=== PATIENT | female | born 1955 | race African-American/Black ===

== ENCOUNTER 2016-09-03 13:35 | Emergency (ER) | payer MEDICARE, MEDICAID ==
[~2016-09-03] VITALS: Ht 165.1 cm; Wt 93.0 kg
[2016-09-03] MEDS ORDERED: SODIUM CHLORIDE 0.9% 1,000 ML IV ONE (17:04)
[2016-09-03 18:50] LABS: EOSINOPHILS % 2.5 % (0.0-5.0); HEMATOCRIT. 29.6 % (36.0-48.0); HEMOGLOBIN. 10.1 g/dL (12.0-16.0); LYMPHOCYTES % 26.6 % (20.0-50.0); MEAN CORPUSCULAR HEMOGLOBIN 32.1 pg (28.0-32.0); MEAN CORPUSCULAR HGB CONC 33.9 g/dL (31.0-37.0); MEAN CORPUSCULAR VOLUME 94.6 fL (81.0-99.0); MEAN PLATELET VOLUME 8.2 fl (7.4-10.4); MONOCYTES % 4.3 % (2.0-8.0); NEUTROPHILS % 65.6 % (40.0-76.0); PLATELET 269 x1000/uL (130-400); RED BLOOD CELL COUNT 3.13 mill/uL (4.2-5.4); RED CELL DISTRIBUTION WIDTH 13.8 % (11.6-14.6); WHITE BLOOD COUNT 9.3 x1000/uL (4.5-11.0)
[2016-09-03 18:54] LABS: PROTHROMBIN TIME 10.5 sec
[2016-09-03 19:03] LABS: ALANINE AMINOTRANSFERASE 19 IU/L (13-61); ALBUMIN 2.9 g/dL (3.4-5.0); ANION GAP 16; CALCIUM 8.9 mg/dL (8.5-10.1); CARBON DIOXIDE 24 mEq/L (21-32); CHLORIDE 106 mEq/L (98-107); INDEX HEMOLYSI 1 (1-3); INDEX ICTERIC 1 (1-4); INDEX LIPEMIC 1 (1-3); UREA NITROGEN BLOOD 13 mg/dL (7-21); eGFR > 60 mL/min (>60)
[2016-09-03 19:17] LABS: HCG SCREEN NEGATIVE
[2016-09-03 20:43] VITALS: BP 127/74
== END 2016-09-03 20:44 | disposition home or self-care (01) ==
LOC: ER 19:19
DX: N93.9 Abnormal uterine and vaginal bleeding, unspecified (principal); R42 Dizziness and giddiness; R53.1 Weakness; E11.9 Type 2 diabetes mellitus without complications; I10 Essential (primary) hypertension
CPT/HCPCS: 36415; 76830; 76856; 80053; 84703; 85025; 85610; 86850; 86900; 86901; 99285; J7030

== ENCOUNTER 2017-01-01 11:44 | Emergency (ER) | payer MEDICARE, MEDICAID ==
[~2017-01-01] VITALS: Ht 175.3 cm; Wt 96.0 kg
[2017-01-01] MEDS ORDERED: MORPHINE SULFATE 4 MG/ML CPJ (NOT FOR IM USE) IV STA (14:18)
[2017-01-01] MEDS ORDERED: SODIUM CHLORIDE 0.9% 1,000 ML IV ONE (14:18)
[2017-01-01] MEDS ORDERED: ONDANSETRON HCL 4MG/2ML VIAL IV STA (14:18)
[2017-01-01 15:04] LABS: CHLORIDE 105 mEq/L (98-107)
[2017-01-01 15:05] LABS: PROTHROMBIN TIME 10.5 sec (9.4-11.6)
[2017-01-01 15:06] LABS: BASOPHILS % 0.9 % (0.0-2.0); HEMATOCRIT. 31.6 % (36.0-48.0); HEMOGLOBIN. 10.3 g/dL (12.0-16.0); LYMPHOCYTES % 14.7 % (20.0-50.0); MEAN CORPUSCULAR HEMOGLOBIN 30.7 pg (28.0-32.0); MEAN CORPUSCULAR VOLUME 94.2 fL (81.0-99.0); MEAN PLATELET VOLUME 8.4 fl (7.4-10.4); NEUTROPHILS % 76.4 % (40.0-76.0); PLATELET 305 x1000/uL (130-400); RED BLOOD CELL COUNT 3.36 mill/uL (4.2-5.4); RED CELL DISTRIBUTION WIDTH 14.3 % (11.6-14.6)
[2017-01-01 15:13] LABS: CARBON DIOXIDE 22 mEq/L (21-32)
[2017-01-01 16:52] LABS: CLARITY URINE TURBID (CLEAR); COLOR URINE ORANGE (YELLOW); GLUCOSE URINE NEGATIVE (NEGATIVE); KETONES URINE NEGATIVE (NEGATIVE); LEUKOCYTE ESTERASE URINE 2+ (NEGATIVE); NITRITE URINE NEGATIVE (NEGATIVE); OCCULT BLOOD URINE 3+ (NEGATIVE); PROTEIN URINE 3+ (NEGATIVE); UROBILINOGEN URINE 0.2 E.U./dL (0.2-1.0)
[2017-01-01 17:54] VITALS: BP 120/75
== END 2017-01-01 17:57 | disposition home or self-care (01) ==
LOC: ER 14:44
DX: K80.20 Calculus of gallbladder without cholecystitis without obstruction (principal); N39.0 Urinary tract infection, site not specified; E11.9 Type 2 diabetes mellitus without complications; J98.11 Atelectasis; I10 Essential (primary) hypertension; F17.210 Nicotine dependence, cigarettes, uncomplicated
CPT/HCPCS: 36415; 71010; 74176; 80053; 81001; 83690; 85025; 85610; 96361; 96374; 96375; 99285; J2270; J2405; J7030

== ENCOUNTER 2019-05-20 11:19 | Inpatient (IN) | payer MEDICARE, MEDICAID ==
[~2019-05-20] VITALS: Ht 172.7 cm; Wt 115.2 kg
[2019-05-20] MEDS ORDERED: SODIUM CHLORIDE 0.9% 1,000 ML IV ONE (12:09)
[2019-05-20] MEDS ORDERED: MORPHINE SULFATE 4 MG/ML CPJ (NOT FOR IM USE) IV STA (12:09)
[2019-05-20] MEDS ORDERED: ONDANSETRON HCL 4MG/2ML INJ IV STA (12:09)
[2019-05-20 12:36] LABS: BASOPHILS % 0.7 % (0.0-2.0); EOSINOPHILS % 1.1 % (0.0-5.0); HEMATOCRIT. 31.8 % (36.0-48.0); HEMOGLOBIN. 10.3 g/dL (12.0-16.0); LYMPHOCYTES % 18.4 % (20.0-50.0); MEAN CORPUSCULAR HEMOGLOBIN 28.9 pg (28.0-32.0); MEAN CORPUSCULAR VOLUME 89.3 fL (81.0-99.0); MEAN PLATELET VOLUME 9.6 fl (7.4-10.4); MONOCYTES % 5.4 % (2.0-8.0); NEUTROPHILS % 74.4 % (40.0-76.0); PLATELET 312 x1000/uL (130-400); RED BLOOD CELL COUNT 3.56 mill/uL (4.2-5.4); RED CELL DISTRIBUTION WIDTH 13.4 % (11.6-14.6)
[2019-05-20 12:43] LABS: CHLORIDE 99 mEq/L (98-107)
[2019-05-20] MEDS ORDERED: INSULIN REGULAR (HUMULIN R) 300UNITS/3ML SUBCUT ONE (14:30)
[2019-05-20 16:48] LABS: CLARITY URINE TURBID (CLEAR); COLOR URINE RED (YELLOW); KETONES URINE 2+ (NEGATIVE); LEUKOCYTE ESTERASE URINE 2+ (NEGATIVE); NITRITE URINE POSITIVE (NEGATIVE); OCCULT BLOOD URINE 3+ (NEGATIVE); PROTEIN URINE 4+ (NEGATIVE); SPECIFIC GRAVITY URINE 1.029 (1.005-1.030)
[2019-05-20] MEDS ORDERED: CEFTRIAXONE 2 G PREMIX 50 ML IV ONE (18:00)
[2019-05-20] MEDS ORDERED: IPRATROPIUM/ALBUTEROL 0.5-3(2.5)MG/3ML NEB NEB PRN (18:30)
[2019-05-20] MEDS ORDERED: DIPHENHYDRAMINE 50MG/ML VIAL IV PRN (18:30)
[2019-05-20] MEDS ORDERED: CLONIDINE 0.1MG TABLET PO PRN (18:30)
[2019-05-20] MEDS ORDERED: MAGNESIUM/ALUMINUM HYDROXIDE/SIMETHICONE 30ML UDC PO PRN (18:30)
[2019-05-20] MEDS ORDERED: ONDANSETRON HCL 4MG/2ML INJ IV PRN (18:30)
[2019-05-20] MEDS ORDERED: ACETAMINOPHEN 325MG TABLET PO PRN (18:30)
[2019-05-20] MEDS ORDERED: NA PHOS,M-B/NA PHOS,DI-BA ENEMA 118ML PR PRN (18:30)
[2019-05-20] MEDS ORDERED: GUAIFENESIN 200MG/10ML SUGAR FREE UDC PO PRN (18:30)
[2019-05-20] MEDS ORDERED: LORAZEPAM 2MG/ML CPJ IV PRN (18:30)
[2019-05-20] MEDS ORDERED: DOCUSATE SODIUM 100MG CAPSULE PO PRN (18:30)
[2019-05-20] MEDS ORDERED: PIPERACILLIN/TAZ 3.375G PREMIX 50 ML IV NR (18:45)
[2019-05-20] MEDS: SODIUM CHLORIDE 0.45% 1,000 ML IV SCH ×2 (19:11→21:50)
[2019-05-20] MEDS: MORPHINE SULFATE 2 MG/ML CPJ (NOT FOR IM USE) IV PRN (20:28)
[2019-05-20 20:45] VITALS: BP 120/69
[2019-05-20] MEDS ORDERED: DEXTROSE 50% WATER 50ML SYRINGE IV PRN (21:45)
[2019-05-20] MEDS: INSULIN LISPRO 100 UNITS/ML SUBCUT SCH (22:01)
[2019-05-20 22:43] VITALS: BP 120/69
[2019-05-21] VITALS: BP 105/53
[2019-05-21] MEDS: PIPERACILLIN/TAZOBACTAM 3.375 G in DEXT 5% WATER 100 ML IV SCH ×3 (03:20→21:17)
[2019-05-21 04:00] VITALS: BP 120/56
[2019-05-21] MEDS ORDERED: PIPERACILLIN/TAZ 3.375G PREMIX 50 ML IV SCH (06:00)
[2019-05-21] MEDS: BLOOD SUGAR DIAGNOSTIC STRIP TEST SCH ×4 (06:35→20:30)
[2019-05-21] MEDS: INSULIN LISPRO 100 UNITS/ML SUBCUT SCH ×4 (06:52→20:44)
[2019-05-21 06:54] LABS: BASOPHILS % 0.7 % (0.0-2.0); EOSINOPHILS % 3.2 % (0.0-5.0); HEMATOCRIT. 27.6 % (36.0-48.0); HEMOGLOBIN. 8.8 g/dL (12.0-16.0); LYMPHOCYTES % 13.7 % (20.0-50.0); MEAN CORPUSCULAR HEMOGLOBIN 28.4 pg (28.0-32.0); MEAN CORPUSCULAR VOLUME 89.2 fL (81.0-99.0); MEAN PLATELET VOLUME 9.2 fl (7.4-10.4); MONOCYTES % 7.6 % (2.0-8.0); NEUTROPHILS % 74.8 % (40.0-76.0); PLATELET 262 x1000/uL (130-400); RED BLOOD CELL COUNT 3.09 mill/uL (4.2-5.4)
[2019-05-21 07:38] LABS: CHLORIDE 103 mEq/L (98-107)
[2019-05-21 08:00] VITALS: BP 114/50
[2019-05-21] MEDS: ASPIRIN 81MG EC TABLET PO SCH (08:47)
[2019-05-21] MEDS: HYDROCODONE/ACETAMINOPHEN 10/325MG TABLET PO PRN (08:53)
[2019-05-21] MEDS ORDERED: INSULIN GLARGINE UD 100 UNITS/ML SYR SUBCUT SCH (10:00)
[2019-05-21 12:00] VITALS: BP 103/46
[2019-05-21] MEDS ORDERED: MORPHINE SULFATE 2 MG/ML CPJ (NOT FOR IM USE) IV PRN (12:00)
[2019-05-21] MEDS: MORPHINE SULFATE 2 MG/ML CPJ (NOT FOR IM USE) IV PRN ×3 (12:32→22:27)
[2019-05-21 16:00] VITALS: BP 109/53
[2019-05-21] MEDS ORDERED: INSULIN LISPRO 100 UNITS/ML SUBCUT NR (18:13)
[2019-05-21] MEDS ORDERED: INSULIN REGULAR (HUMULIN R) 300UNITS/3ML SUBCUT ONE (18:15)
[2019-05-21 20:00] VITALS: BP 117/59
[2019-05-22] VITALS: BP 110/54
[2019-05-22] MEDS: MORPHINE SULFATE 2 MG/ML CPJ (NOT FOR IM USE) IV PRN ×5 (03:52→21:46)
[2019-05-22 04:00] VITALS: BP 101/54
[2019-05-22] MEDS: PIPERACILLIN/TAZOBACTAM 3.375 G in DEXT 5% WATER 100 ML IV SCH ×3 (05:27→21:49)
[2019-05-22] MEDS: BLOOD SUGAR DIAGNOSTIC STRIP TEST SCH ×4 (06:25→20:38)
[2019-05-22] MEDS: INSULIN LISPRO 100 UNITS/ML SUBCUT SCH ×4 (07:38→21:56)
[2019-05-22 08:00] VITALS: BP 107/53
[2019-05-22] MEDS ORDERED: INSULIN LISPRO 100 UNITS/ML SUBCUT ONE (09:00)
[2019-05-22] MEDS: ASPIRIN 81MG EC TABLET PO SCH (10:17)
[2019-05-22] MEDS: INSULIN GLARGINE UD 100 UNITS/ML SYR SUBCUT SCH (10:20)
[2019-05-22] MEDS: SODIUM CHLORIDE 0.45% 1,000 ML IV SCH ×2 (10:52→22:00)
[2019-05-22 12:00] VITALS: BP 102/75
[2019-05-22 16:00] VITALS: BP 118/59
[2019-05-22 20:00] VITALS: BP 108/50
[2019-05-23] VITALS: BP 103/51
[2019-05-23 04:00] VITALS: BP 109/53
[2019-05-23] MEDS: PIPERACILLIN/TAZOBACTAM 3.375 G in DEXT 5% WATER 100 ML IV SCH ×3 (05:40→22:03)
[2019-05-23] MEDS: MORPHINE SULFATE 2 MG/ML CPJ (NOT FOR IM USE) IV PRN ×4 (06:00→22:03)
[2019-05-23] MEDS: BLOOD SUGAR DIAGNOSTIC STRIP TEST SCH ×4 (06:41→21:00)
[2019-05-23] MEDS: ASPIRIN 81MG EC TABLET PO SCH (08:15)
[2019-05-23] MEDS: INSULIN LISPRO 100 UNITS/ML SUBCUT SCH ×4 (08:21→22:08)
[2019-05-23] MEDS: INSULIN GLARGINE UD 100 UNITS/ML SYR SUBCUT SCH (10:49)
[2019-05-23 20:00] VITALS: BP 127/79
[2019-05-23] MEDS: SODIUM CHLORIDE 0.45% 1,000 ML IV SCH ×2 (22:14→22:16)
[2019-05-24] VITALS: BP 106/56
[2019-05-24 04:00] VITALS: BP 119/77
[2019-05-24] MEDS: PIPERACILLIN/TAZOBACTAM 3.375 G in DEXT 5% WATER 100 ML IV SCH (06:16)
[2019-05-24] MEDS: BLOOD SUGAR DIAGNOSTIC STRIP TEST SCH ×2 (06:42→11:39)
[2019-05-24 08:00] VITALS: BP 116/81
[2019-05-24] MEDS: ASPIRIN 81MG EC TABLET PO SCH (08:14)
[2019-05-24] MEDS: INSULIN LISPRO 100 UNITS/ML SUBCUT SCH ×2 (09:18→12:09)
[2019-05-24] MEDS: INSULIN GLARGINE UD 100 UNITS/ML SYR SUBCUT SCH (09:18)
[2019-05-24] MEDS: MORPHINE SULFATE 2 MG/ML CPJ (NOT FOR IM USE) IV PRN (09:19)
[2019-05-24 12:21] VITALS: BP 112/50
[2019-05-24 12:33] VITALS: BP 112/50
[2019-05-24] MEDS: HYDROCODONE/ACETAMINOPHEN 10/325MG TABLET PO PRN (12:33)
== END 2019-05-24 13:10 | DRG 690 ==
LOC: ER 11:19 → 6EST 18:19 → EDBEDREQTM 18:30 → EDBEDREQ 18:30 → ENRESERV 19:56
PROVIDERS: ADMIT Internal Medicine; ATTEND Internal Medicine
DX: N12 Tubulo-interstitial nephritis, not specified as acute or chronic (principal); E87.1 Hypo-osmolality and hyponatremia; E46 Unspecified protein-calorie malnutrition; R65.10 Systemic inflammatory response syndrome (SIRS) of non-infectious origin without acute organ dysfunction; N39.0 Urinary tract infection, site not specified; N17.9 Acute kidney failure, unspecified; E11.9 Type 2 diabetes mellitus without complications; G89.29 Other chronic pain; L89.322 Pressure ulcer of left buttock, stage 2; F17.210 Nicotine dependence, cigarettes, uncomplicated; D64.9 Anemia, unspecified; R26.9 Unspecified abnormalities of gait and mobility; E86.0 Dehydration; I10 Essential (primary) hypertension; L89.42 Pressure ulcer of contiguous site of back, buttock and hip, stage 2; Z89.512 Acquired absence of left leg below knee; Z68.38 Body mass index [BMI] 38.0-38.9, adult
CPT/HCPCS: 36415; 72148; 80053; 81003; 82962; 84134; 85025; 87077; 87186; 96365; 97162; 99285; J0696; J1815; J2270; J2405; J2543; J7030; J7060

== ENCOUNTER 2019-08-28 23:28 | Inpatient (IN) | payer MEDICARE, MEDICAID ==
[~2019-08-28] VITALS: Ht 165.1 cm; Wt 100.4 kg
[2019-08-29 00:31] LABS: BASOPHILS % 1.5 % (0.0-2.0); EOSINOPHILS % 2.1 % (0.0-5.0); HEMATOCRIT. 23.2 % (36.0-48.0); LYMPHOCYTES % 26.4 % (20.0-50.0); MEAN CORPUSCULAR HEMOGLOBIN 22.5 pg (28.0-32.0); MEAN CORPUSCULAR VOLUME 76.3 fL (81.0-99.0); MEAN PLATELET VOLUME 8.4 fl (7.4-10.4); MONOCYTES % 5.7 % (2.0-8.0); NEUTROPHILS % 64.3 % (40.0-76.0); PLATELET 455 x1000/uL (130-400); RED BLOOD CELL COUNT 3.04 mill/uL (4.2-5.4); RED CELL DISTRIBUTION WIDTH 17.2 % (11.6-14.6)
[2019-08-29 00:33] LABS: HEMOGLOBIN. 6.8 g/dL (12.0-16.0)
[2019-08-29 00:37] LABS: CHLORIDE 111 mEq/L (98-107)
[2019-08-29 03:36] LABS: CLARITY URINE CLOUDY (CLEAR); COLOR URINE YELLOW (YELLOW); KETONES URINE TRACE (NEGATIVE); LEUKOCYTE ESTERASE URINE 1+ (NEGATIVE); NITRITE URINE POSITIVE (NEGATIVE); OCCULT BLOOD URINE NEGATIVE (NEGATIVE); PROTEIN URINE 2+ (NEGATIVE); SPECIFIC GRAVITY URINE 1.021 (1.005-1.030)
[2019-08-29] MEDS ORDERED: CEFTRIAXONE 1 G PREMIX 50 ML IV ONE (05:45)
[2019-08-29] MEDS ORDERED: SODIUM CHLORIDE 0.9% 1,000 ML IV ONE (05:45)
[2019-08-29] MEDS ORDERED: TRAMADOL 50MG TABLET PO PRN (07:45)
[2019-08-29] MEDS ORDERED: ONDANSETRON HCL 4MG/2ML INJ IV PRN (07:45)
[2019-08-29] MEDS ORDERED: ACETAMINOPHEN 325MG TABLET PO PRN ×2 (07:45)
[2019-08-29] MEDS ORDERED: DOCUSATE SODIUM 100MG CAPSULE PO PRN (07:45)
[2019-08-29] MEDS ORDERED: GUAIFENESIN 200MG/10ML SUGAR FREE UDC PO PRN (07:45)
[2019-08-29] MEDS ORDERED: IPRATROPIUM/ALBUTEROL 0.5-3(2.5)MG/3ML NEB ORI PRN (07:45)
[2019-08-29] MEDS ORDERED: CLONIDINE 0.1MG TABLET PO PRN (07:45)
[2019-08-29] MEDS ORDERED: ZOLPIDEM TARTRATE 5MG TABLET PO PRN (07:45)
[2019-08-29] MEDS ORDERED: DEXTROSE 50% WATER 50ML SYRINGE IV PRN (07:45)
[2019-08-29] MEDS ORDERED: PANTOPRAZOLE SODIUM 40 MG/VIAL IV SCH (08:00)
[2019-08-29 08:39] LABS: T4 FREE 1.04 ng/dL (0.76-1.46)
[2019-08-29 08:51] LABS: FOLIC ACID (FOLATE) SERUM 11.3 ng/mL (>5.38)
[2019-08-29] MEDS: INSULIN LISPRO 100 UNITS/ML SUBCUT SCH ×4 (08:56→20:18)
[2019-08-29] MEDS: BLOOD SUGAR DIAGNOSTIC STRIP TEST SCH ×4 (09:08→20:06)
[2019-08-29 11:20] VITALS: BP 127/75
[2019-08-29 12:00] VITALS: BP 136/73
[2019-08-29] MEDS: FERROUS SULFATE 325MG TABLET PO SCH ×2 (14:41→18:20)
[2019-08-29] MEDS: SUCRALFATE 1 G/10 ML UDC PO SCH ×3 (14:41→20:17)
[2019-08-29 16:13] LABS: HEMATOCRIT 25.6 % (36.0-48.0); HEMOGLOBIN 7.9 g/dL (12.0-16.0)
[2019-08-29 16:28] LABS: PROTHROMBIN TIME 10.8 sec (9.6-11.0)
[2019-08-29 17:10] VITALS: BP 152/87
[2019-08-29] MEDS ORDERED: LEVOFLOXACIN 500MG PREMIX 100 ML IV NR (18:00)
[2019-08-29 20:00] VITALS: BP 135/66
[2019-08-29 22:55] VITALS: BP 134/69
[2019-08-29 23:15] VITALS: BP 142/77
[2019-08-30] VITALS (8 sets, daily range): BP systolic 132–150; BP diastolic 63–83
[2019-08-30 06:11] LABS: BASOPHILS % 0.4 % (0.0-2.0); EOSINOPHILS % 2.6 % (0.0-5.0); HEMATOCRIT. 27.8 % (36.0-48.0); HEMOGLOBIN. 8.8 g/dL (12.0-16.0); LYMPHOCYTES % 21.9 % (20.0-50.0); MEAN CORPUSCULAR HEMOGLOBIN 24.9 pg (28.0-32.0); MEAN CORPUSCULAR VOLUME 78.6 fL (81.0-99.0); MEAN PLATELET VOLUME 8.3 fl (7.4-10.4); MONOCYTES % 5.4 % (2.0-8.0); NEUTROPHILS % 69.7 % (40.0-76.0); PLATELET 303 x1000/uL (130-400); RED BLOOD CELL COUNT 3.53 mill/uL (4.2-5.4); RED CELL DISTRIBUTION WIDTH 17.9 % (11.6-14.6)
[2019-08-30 06:24] LABS: CHLORIDE 111 mEq/L (98-107)
[2019-08-30] MEDS: SUCRALFATE 1 G/10 ML UDC PO SCH ×4 (06:35→21:05)
[2019-08-30] MEDS: BLOOD SUGAR DIAGNOSTIC STRIP TEST SCH ×4 (06:37→21:00)
[2019-08-30 06:39] LABS: PHOSPHORUS 2.1 mg/dL (2.5-4.9)
[2019-08-30] MEDS: PANTOPRAZOLE SODIUM 40 MG/VIAL IV SCH (08:40)
[2019-08-30] MEDS: FERROUS SULFATE 325MG TABLET PO SCH ×3 (08:40→16:42)
[2019-08-30] MEDS: INSULIN LISPRO 100 UNITS/ML SUBCUT SCH ×4 (08:41→21:00)
[2019-08-30] MEDS: CEFTRIAXONE 1 G PREMIX 50 ML IV SCH (08:43)
[2019-08-30] MEDS ORDERED: LEVOFLOXACIN 250MG PREMIX 50 ML IV SCH (15:00)
[2019-08-31 00:08] VITALS: BP 123/52
[2019-08-31 04:00] VITALS: BP 118/71
[2019-08-31] MEDS: SUCRALFATE 1 G/10 ML UDC PO SCH ×4 (05:46→20:29)
[2019-08-31] MEDS: BLOOD SUGAR DIAGNOSTIC STRIP TEST SCH ×4 (05:49→20:07)
[2019-08-31 08:00] VITALS: BP 159/72
[2019-08-31] MEDS: CEFTRIAXONE 1 G PREMIX 50 ML IV SCH (09:11)
[2019-08-31] MEDS: FERROUS SULFATE 325MG TABLET PO SCH ×3 (09:11→18:37)
[2019-08-31] MEDS: PANTOPRAZOLE SODIUM 40 MG/VIAL IV SCH (09:11)
[2019-08-31] MEDS: INSULIN LISPRO 100 UNITS/ML SUBCUT SCH ×4 (09:12→20:31)
[2019-08-31 12:00] VITALS: BP 127/72
[2019-08-31] MEDS: LEVOFLOXACIN 250MG TABLET PO SCH (15:26)
[2019-08-31 16:00] VITALS: BP 147/81
[2019-08-31 20:55] VITALS: BP 149/75
[2019-09-01 00:22] VITALS: BP 142/72
[2019-09-01 05:20] VITALS: BP 140/67
[2019-09-01] MEDS: BLOOD SUGAR DIAGNOSTIC STRIP TEST SCH ×4 (06:48→21:04)
[2019-09-01] MEDS: SUCRALFATE 1 G/10 ML UDC PO SCH ×4 (06:48→21:05)
[2019-09-01 09:11] LABS: FOLATE HEMATOCRIT 30.6 % (34.0-46.6)
[2019-09-01] MEDS: CEFTRIAXONE 1 G PREMIX 50 ML IV SCH (09:13)
[2019-09-01] MEDS: FERROUS SULFATE 325MG TABLET PO SCH ×2 (09:13→15:26)
[2019-09-01] MEDS: PANTOPRAZOLE SODIUM 40 MG/VIAL IV SCH (09:13)
[2019-09-01] MEDS: INSULIN LISPRO 100 UNITS/ML SUBCUT SCH ×4 (09:17→21:07)
[2019-09-01 13:06] LABS: FOLATE RBC 1235 ng/mL (>498)
[2019-09-01] MEDS: LEVOFLOXACIN 250MG TABLET PO SCH (15:25)
[2019-09-01 21:27] VITALS: BP 106/49
[2019-09-02] VITALS (7 sets, daily range): BP systolic 110–149; BP diastolic 56–89
[2019-09-02] MEDS: BLOOD SUGAR DIAGNOSTIC STRIP TEST SCH ×4 (06:32→20:10)
[2019-09-02] MEDS: SUCRALFATE 1 G/10 ML UDC PO SCH ×4 (06:39→20:16)
[2019-09-02] MEDS: CEFTRIAXONE 1 G PREMIX 50 ML IV SCH (09:29)
[2019-09-02] MEDS: PANTOPRAZOLE SODIUM 40 MG/VIAL IV SCH (09:29)
[2019-09-02] MEDS: FERROUS SULFATE 325MG TABLET PO SCH ×4 (09:29→18:09)
[2019-09-02] MEDS: INSULIN LISPRO 100 UNITS/ML SUBCUT SCH ×4 (09:31→20:18)
[2019-09-02] MEDS: LEVOFLOXACIN 250MG TABLET PO SCH (15:25)
[2019-09-03 00:27] VITALS: BP 139/77
[2019-09-03 04:30] VITALS: BP 132/70
[2019-09-03] MEDS: BLOOD SUGAR DIAGNOSTIC STRIP TEST SCH ×4 (06:20→21:00)
[2019-09-03] MEDS: SUCRALFATE 1 G/10 ML UDC PO SCH ×4 (06:22→22:46)
[2019-09-03] MEDS ORDERED: CEFTRIAXONE 1,000 MG in DEXTROSE 5% WATER 50 ML IV SCH (09:00)
[2019-09-03] MEDS: PANTOPRAZOLE SODIUM 40 MG/VIAL IV SCH (09:23)
[2019-09-03] MEDS: FERROUS SULFATE 325MG TABLET PO SCH ×3 (09:24→18:18)
[2019-09-03] MEDS: INSULIN LISPRO 100 UNITS/ML SUBCUT SCH ×4 (09:24→22:48)
[2019-09-03 12:00] VITALS: BP 152/82
[2019-09-03 16:00] VITALS: BP 137/69
[2019-09-03 20:00] VITALS: BP 142/67
[2019-09-04] VITALS: BP 152/69
[2019-09-04 04:00] VITALS: BP 149/69
[2019-09-04] MEDS: SUCRALFATE 1 G/10 ML UDC PO SCH ×4 (06:08→21:07)
[2019-09-04] MEDS: BLOOD SUGAR DIAGNOSTIC STRIP TEST SCH ×4 (06:08→21:06)
[2019-09-04 08:00] VITALS: BP 150/78
[2019-09-04] MEDS: FERROUS SULFATE 325MG TABLET PO SCH ×3 (08:59→17:47)
[2019-09-04] MEDS: PANTOPRAZOLE SODIUM 40 MG/VIAL IV SCH (08:59)
[2019-09-04] MEDS: INSULIN LISPRO 100 UNITS/ML SUBCUT SCH ×4 (09:00→21:25)
[2019-09-04 12:00] VITALS: BP 131/65
[2019-09-04 16:00] VITALS: BP 153/81
[2019-09-04 20:00] VITALS: BP 153/72
[2019-09-05] VITALS: BP 155/80
[2019-09-05 04:00] VITALS: BP 141/88
[2019-09-05] MEDS: SUCRALFATE 1 G/10 ML UDC PO SCH ×4 (06:00→20:30)
[2019-09-05] MEDS: BLOOD SUGAR DIAGNOSTIC STRIP TEST SCH ×4 (06:00→20:19)
[2019-09-05 08:00] VITALS: BP 132/76
[2019-09-05] MEDS: FERROUS SULFATE 325MG TABLET PO SCH ×3 (08:16→17:29)
[2019-09-05] MEDS: PANTOPRAZOLE SODIUM 40 MG/VIAL IV SCH (08:16)
[2019-09-05] MEDS: INSULIN LISPRO 100 UNITS/ML SUBCUT SCH ×4 (08:23→20:32)
[2019-09-05 12:00] VITALS: BP 134/61
[2019-09-05 16:00] VITALS: BP 162/84
[2019-09-05 20:00] VITALS: BP 116/64
[2019-09-06] VITALS: BP 137/69
[2019-09-06 04:00] VITALS: BP 166/80
[2019-09-06] MEDS: SUCRALFATE 1 G/10 ML UDC PO SCH ×4 (06:13→21:22)
[2019-09-06] MEDS: BLOOD SUGAR DIAGNOSTIC STRIP TEST SCH ×4 (06:13→21:14)
[2019-09-06] MEDS: INSULIN LISPRO 100 UNITS/ML SUBCUT SCH ×4 (06:38→21:28)
[2019-09-06 08:00] VITALS: BP 156/80
[2019-09-06] MEDS: PANTOPRAZOLE SODIUM 40 MG/VIAL IV SCH (08:28)
[2019-09-06] MEDS: FERROUS SULFATE 325MG TABLET PO SCH ×3 (08:28→17:43)
[2019-09-06 12:00] VITALS: BP 156/84
[2019-09-06 16:00] VITALS: BP 132/72
[2019-09-06 20:00] VITALS: BP 160/87
[2019-09-06] MEDS: ASCORBIC ACID 500 MG TABLET PO SCH (21:22)
[2019-09-07] VITALS: BP 127/61
[2019-09-07 04:00] VITALS: BP 110/51
[2019-09-07] MEDS: SUCRALFATE 1 G/10 ML UDC PO SCH ×4 (06:42→21:13)
[2019-09-07] MEDS: BLOOD SUGAR DIAGNOSTIC STRIP TEST SCH ×4 (06:42→21:11)
[2019-09-07 06:44] LABS: BASOPHILS % 0.4 % (0.0-2.0); EOSINOPHILS % 1.8 % (0.0-5.0); HEMATOCRIT. 29.1 % (36.0-48.0); HEMOGLOBIN. 9.2 g/dL (12.0-16.0); LYMPHOCYTES % 25.4 % (20.0-50.0); MEAN CORPUSCULAR HEMOGLOBIN 25.3 pg (28.0-32.0); MEAN CORPUSCULAR VOLUME 79.9 fL (81.0-99.0); MEAN PLATELET VOLUME 9.3 fl (7.4-10.4); MONOCYTES % 4.7 % (2.0-8.0); NEUTROPHILS % 67.7 % (40.0-76.0); PLATELET 170 x1000/uL (130-400); RED BLOOD CELL COUNT 3.64 mill/uL (4.2-5.4); RED CELL DISTRIBUTION WIDTH 21.8 % (11.6-14.6)
[2019-09-07 06:54] LABS: CHLORIDE 106 mEq/L (98-107)
[2019-09-07 07:00] LABS: PHOSPHORUS 3.6 mg/dL (2.5-4.9)
[2019-09-07 08:00] VITALS: BP 122/58
[2019-09-07] MEDS: INSULIN LISPRO 100 UNITS/ML SUBCUT SCH ×4 (08:57→21:22)
[2019-09-07] MEDS: FERROUS SULFATE 325MG TABLET PO SCH ×3 (09:01→17:31)
[2019-09-07] MEDS: ASCORBIC ACID 500 MG TABLET PO SCH ×2 (09:01→21:12)
[2019-09-07] MEDS: PANTOPRAZOLE SODIUM 40 MG/VIAL IV SCH (09:01)
[2019-09-07 12:00] VITALS: BP 142/81
[2019-09-07 16:00] VITALS: BP 140/98
[2019-09-07] MEDS: LACTULOSE 20G/30ML UDC PO SCH ×2 (17:30→21:12)
[2019-09-07] MEDS: DOCUSATE SODIUM 100MG CAPSULE PO SCH (17:31)
[2019-09-07 20:00] VITALS: BP 126/77
[2019-09-07] MEDS ORDERED: POLYETHYLENE GLYCOL 3350 (17GM) 1 DOSE PACK PO SCH (21:00)
[2019-09-08] VITALS: BP 129/58
[2019-09-08 04:00] VITALS: BP 165/72
[2019-09-08] MEDS: BLOOD SUGAR DIAGNOSTIC STRIP TEST SCH ×2 (06:25→13:10)
[2019-09-08] MEDS: SUCRALFATE 1 G/10 ML UDC PO SCH ×2 (06:25→12:52)
[2019-09-08 08:00] VITALS: BP 131/72
[2019-09-08] MEDS: LACTULOSE 20G/30ML UDC PO SCH (09:06)
[2019-09-08] MEDS: PANTOPRAZOLE SODIUM 40 MG/VIAL IV SCH (09:06)
[2019-09-08] MEDS: DOCUSATE SODIUM 100MG CAPSULE PO SCH (09:06)
[2019-09-08] MEDS: FERROUS SULFATE 325MG TABLET PO SCH ×2 (09:06→12:52)
[2019-09-08] MEDS: ASCORBIC ACID 500 MG TABLET PO SCH (09:06)
[2019-09-08] MEDS: INSULIN LISPRO 100 UNITS/ML SUBCUT SCH ×2 (09:44→13:09)
[2019-09-08 12:00] VITALS: BP 120/61
[2019-09-08 13:57] VITALS: BP 120/61
[2019-09-10 07:10] LABS: 25-HYDROXY VITAMIN D3 9.3 ng/mL (.)
== END 2019-09-08 16:30 | DRG 871 ==
LOC: ER 23:28 → 6WST 08-29 05:45 → ENRESERV 08-29 07:34 → SUPCPDRO 08-29 07:39 → 6EST 09-04 14:18
PROVIDERS: ADMIT Internal Medicine; ATTEND Internal Medicine
PROC: 30233N1 Transfusion of Nonautologous Red Blood Cells into Peripheral Vein, Percutaneous Approach (ICD-10-PCS; principal; 2019-08-29)
DX: A41.9 Sepsis, unspecified organism (principal); G92 Toxic encephalopathy; N17.0 Acute kidney failure with tubular necrosis; N39.0 Urinary tract infection, site not specified; E44.0 Moderate protein-calorie malnutrition; Z16.12 Extended spectrum beta lactamase (ESBL) resistance; Z16.24 Resistance to multiple antibiotics; B96.20 Unspecified Escherichia coli [E. coli] as the cause of diseases classified elsewhere; D25.9 Leiomyoma of uterus, unspecified; D50.9 Iron deficiency anemia, unspecified; E11.22 Type 2 diabetes mellitus with diabetic chronic kidney disease; E11.51 Type 2 diabetes mellitus with diabetic peripheral angiopathy without gangrene; E11.65 Type 2 diabetes mellitus with hyperglycemia; E78.5 Hyperlipidemia, unspecified; I12.9 Hypertensive chronic kidney disease with stage 1 through stage 4 chronic kidney disease, or unspecified chronic kidney disease; K80.20 Calculus of gallbladder without cholecystitis without obstruction; N18.9 Chronic kidney disease, unspecified; K76.0 Fatty (change of) liver, not elsewhere classified; G89.29 Other chronic pain; M54.5 Low back pain; R16.0 Hepatomegaly, not elsewhere classified; R26.9 Unspecified abnormalities of gait and mobility; E11.42 Type 2 diabetes mellitus with diabetic polyneuropathy; N92.0 Excessive and frequent menstruation with regular cycle; Z82.49 Family history of ischemic heart disease and other diseases of the circulatory system; Z79.4 Long term (current) use of insulin; Z83.3 Family history of diabetes mellitus; Z89.512 Acquired absence of left leg below knee; Z68.36 Body mass index [BMI] 36.0-36.9, adult; E66.9 Obesity, unspecified
CPT/HCPCS: 36415; 71045; 76700; 76830; 76856; 80048; 80053; 80061; 81003; 82306; 82607; 82728; 82746; 82747; 82962; 83036; 83540; 83550; 83735; 83880; 84100; 84439; 84443; 84484; 85014; 85018; 85025; 85049; 85384; 86850; 86870; 86900; 86920; 87635; 93005; 93970; 97162; 97166; 97530; 99291; C9113; J0696; J1815; J1956; J7030; J7060; P9016; U0003-CS

== ENCOUNTER 2020-06-21 03:32 | Inpatient (IN) | payer MEDICARE, MEDICAID ==
[~2020-06-21] VITALS: Ht 175.3 cm; Wt 83.9 kg
[2020-06-21 04:36] LABS: BASOPHILS % 0.5 % (0.0-2.0); EOSINOPHILS % 1.2 % (0.0-5.0); HEMATOCRIT. 26.7 % (36.0-48.0); HEMOGLOBIN. 8.8 g/dL (12.0-16.0); LYMPHOCYTES % 11.3 % (20.0-50.0); MEAN CORPUSCULAR HEMOGLOBIN 29.3 pg (28.0-32.0); MEAN CORPUSCULAR VOLUME 89.6 fL (81.0-99.0); PLATELET 345 x1000/uL (130-400); RED BLOOD CELL COUNT 2.98 mill/uL (4.2-5.4); RED CELL DISTRIBUTION WIDTH 14.1 % (11.6-14.6)
[2020-06-21 04:56] LABS: CHLORIDE 109 mEq/L (98-107)
[2020-06-21 05:02] LABS: ETHANOL BLOOD < 10 mg/dL
[2020-06-21] MEDS: SODIUM CHLORIDE 0.9% 1,000 ML IV SCH (11:44)
[2020-06-21 11:55] LABS: CREATINE KINASE 142 IU/L (26-192)
[2020-06-21] MEDS ORDERED: TRAZODONE HCL 50MG TABLET PO PRN (12:15)
[2020-06-21] MEDS ORDERED: ACETAMINOPHEN 325MG TABLET PO PRN (12:15)
[2020-06-21] MEDS ORDERED: DEXTROSE 50% WATER 50ML SYRINGE IV PRN (12:15)
[2020-06-21] MEDS ORDERED: ONDANSETRON HCL 4MG/2ML INJ IV PRN (12:15)
[2020-06-21] MEDS: HEPARIN 5000 UNITS/ML VIAL SUBCUT SCH ×2 (12:30→21:13)
[2020-06-21] MEDS: INSULIN LISPRO 100 UNITS/ML SUBCUT SCH ×3 (12:57→21:00)
[2020-06-21] MEDS: BLOOD SUGAR DIAGNOSTIC STRIP TEST SCH ×3 (12:57→21:06)
[2020-06-21] MEDS: TRAMADOL 50MG TABLET PO PRN (12:58)
[2020-06-21] MEDS ORDERED: LIDOCAINE 5% PATCH TOP SCH (13:00)
[2020-06-21 13:16] LABS: CLARITY URINE CLOUDY (CLEAR); COLOR URINE YELLOW (YELLOW); KETONES URINE NEGATIVE (NEGATIVE); LEUKOCYTE ESTERASE URINE 2+ (NEGATIVE); NITRITE URINE POSITIVE (NEGATIVE); OCCULT BLOOD URINE 1+ (NEGATIVE); PROTEIN URINE 1+ (NEGATIVE); SPECIFIC GRAVITY URINE 1.018 (1.005-1.030); UROBILINOGEN URINE 0.2 E.U./dL (0.2-1.0)
[2020-06-21 13:48] LABS: TOTAL IRON BINDING CAPACITY 245 ug/dL (250-450)
[2020-06-21 14:11] LABS: *BARBITURATES SCREEN URINE NEGATIVE (NEGATIVE); *BENZODIAZEPINES SCREEN URINE NEGATIVE (NEGATIVE); *COCAINE SCREEN URINE PRESUMTIVE POSITIVE (NEGATIVE)
[2020-06-21 14:12] LABS: CANNABINOID URINE SCREEN NEGATIVE (NEGATIVE); METHADONE URINE SCREEN NEGATIVE (NEGATIVE); OPIATES URINE SCREEN NEGATIVE (NEGATIVE); PHENCYCLIDINE URINE SCREEN PRESUMTIVE POSITIVE (NEGATIVE)
[2020-06-21 14:13] LABS: *AMPHETAMINES SCREEN URINE NEGATIVE (NEGATIVE)
[2020-06-21] MEDS: GABAPENTIN 100MG CAPSULE PO SCH ×2 (14:34→21:13)
[2020-06-21 14:49] LABS: FOLIC ACID (FOLATE) SERUM 7.6 ng/mL (>5.38)
[2020-06-21 18:00] VITALS: BP 123/66
[2020-06-21 20:00] VITALS: BP 99/51
[2020-06-22] VITALS: BP 109/55
[2020-06-22] MEDS: SODIUM CHLORIDE 0.9% 1,000 ML IV SCH ×2 (03:25→14:04)
[2020-06-22 04:00] VITALS: BP 95/51
[2020-06-22] MEDS: GABAPENTIN 100MG CAPSULE PO SCH ×3 (05:56→21:11)
[2020-06-22] MEDS: BLOOD SUGAR DIAGNOSTIC STRIP TEST SCH ×4 (05:56→21:10)
[2020-06-22] MEDS: INSULIN LISPRO 100 UNITS/ML SUBCUT SCH ×4 (07:03→21:00)
[2020-06-22 08:00] VITALS: BP 91/47
[2020-06-22 08:58] LABS: BASOPHILS % 0.7 % (0.0-2.0); EOSINOPHILS % 1.7 % (0.0-5.0); HEMATOCRIT. 24.4 % (36.0-48.0); HEMOGLOBIN. 7.9 g/dL (12.0-16.0); LYMPHOCYTES % 39.1 % (20.0-50.0); MEAN CORPUSCULAR VOLUME 89.8 fL (81.0-99.0); MEAN PLATELET VOLUME 8.2 fl (7.4-10.4); MONOCYTES % 7.9 % (2.0-8.0); NEUTROPHILS % 50.6 % (40.0-76.0); PLATELET 320 x1000/uL (130-400); RED BLOOD CELL COUNT 2.71 mill/uL (4.2-5.4)
[2020-06-22] MEDS: LIDOCAINE 5% PATCH TOP SCH (09:11)
[2020-06-22] MEDS: HEPARIN 5000 UNITS/ML VIAL SUBCUT SCH ×2 (09:11→21:11)
[2020-06-22 09:12] LABS: CHLORIDE 111 mEq/L (98-107)
[2020-06-22 12:00] VITALS: BP 131/46
[2020-06-22] MEDS: TRAMADOL 50MG TABLET PO PRN (12:46)
[2020-06-22] MEDS: FERROUS SULFATE 325MG TABLET PO SCH ×2 (12:46→18:11)
[2020-06-22 16:00] VITALS: BP 114/42
[2020-06-22 20:00] VITALS: BP 97/49
[2020-06-23] VITALS: BP 104/51
[2020-06-23] MEDS: SODIUM CHLORIDE 0.9% 1,000 ML IV SCH ×3 (04:33→19:26)
[2020-06-23] MEDS: GABAPENTIN 100MG CAPSULE PO SCH ×3 (06:16→21:23)
[2020-06-23] MEDS: BLOOD SUGAR DIAGNOSTIC STRIP TEST SCH ×4 (06:17→20:40)
[2020-06-23 07:31] LABS: BASOPHILS % 0.9 % (0.0-2.0); EOSINOPHILS % 1.7 % (0.0-5.0); HEMATOCRIT. 22.1 % (36.0-48.0); HEMOGLOBIN. 7.1 g/dL (12.0-16.0); LYMPHOCYTES % 43.4 % (20.0-50.0); MEAN CORPUSCULAR HEMOGLOBIN 29.1 pg (28.0-32.0); MEAN CORPUSCULAR VOLUME 90.2 fL (81.0-99.0); MEAN PLATELET VOLUME 8.6 fl (7.4-10.4); MONOCYTES % 7.4 % (2.0-8.0); NEUTROPHILS % 46.6 % (40.0-76.0); PLATELET 315 x1000/uL (130-400); RED BLOOD CELL COUNT 2.45 mill/uL (4.2-5.4)
[2020-06-23] MEDS: INSULIN LISPRO 100 UNITS/ML SUBCUT SCH ×4 (07:40→20:52)
[2020-06-23 08:10] LABS: CHLORIDE 110 mEq/L (98-107)
[2020-06-23 08:11] LABS: ANTI-NUCLEAR ANTIBODIES DIRECT Negative (Negative)
[2020-06-23] MEDS: LIDOCAINE 5% PATCH TOP SCH (09:00)
[2020-06-23] MEDS: HEPARIN 5000 UNITS/ML VIAL SUBCUT SCH ×2 (09:00→21:23)
[2020-06-23] MEDS: THIAMINE HCL 100MG TABLET PO SCH (09:33)
[2020-06-23] MEDS: TRAMADOL 50MG TABLET PO PRN (09:33)
[2020-06-23] MEDS: FERROUS SULFATE 325MG TABLET PO SCH ×3 (09:33→17:14)
[2020-06-23] MEDS: ASCORBIC ACID 500 MG TABLET PO SCH (09:34)
[2020-06-23] MEDS: FOLIC ACID 1MG TABLET PO SCH (09:34)
[2020-06-23 16:00] VITALS: BP 100/54
[2020-06-23 20:00] VITALS: BP 109/50
[2020-06-23] MEDS ORDERED: CEFTRIAXONE 2 G PREMIX 50 ML IV SCH (22:15)
[2020-06-24] VITALS: BP 110/54
[2020-06-24 04:00] VITALS: BP 103/51
[2020-06-24] MEDS: SODIUM CHLORIDE 0.9% 1,000 ML IV SCH ×2 (05:26→17:44)
[2020-06-24] MEDS: GABAPENTIN 100MG CAPSULE PO SCH ×3 (06:20→21:43)
[2020-06-24] MEDS: BLOOD SUGAR DIAGNOSTIC STRIP TEST SCH ×4 (06:23→20:34)
[2020-06-24] MEDS: INSULIN LISPRO 100 UNITS/ML SUBCUT SCH ×4 (07:40→21:00)
[2020-06-24 08:00] VITALS: BP 115/65
[2020-06-24] MEDS ORDERED: FERROUS SULFATE 200 MG IV SCH (09:00)
[2020-06-24] MEDS: FOLIC ACID 1MG TABLET PO SCH (09:55)
[2020-06-24] MEDS: THIAMINE HCL 100MG TABLET PO SCH (09:55)
[2020-06-24] MEDS: FERROUS SULFATE 325MG TABLET PO SCH (09:55)
[2020-06-24] MEDS: ASCORBIC ACID 500 MG TABLET PO SCH (09:56)
[2020-06-24] MEDS: HEPARIN 5000 UNITS/ML VIAL SUBCUT SCH ×2 (09:56→20:34)
[2020-06-24] MEDS: IRON SUCROSE COMPLEX 100 MG/5 ML ML IV SCH (09:57)
[2020-06-24] MEDS: TRAMADOL 50MG TABLET PO PRN (10:02)
[2020-06-24] MEDS: LIDOCAINE 5% PATCH TOP SCH (10:18)
[2020-06-24 12:00] VITALS: BP 129/57
[2020-06-24 15:15] VITALS: BP 129/57
[2020-06-24 16:00] VITALS: BP 116/63
[2020-06-24] MEDS: CEFTRIAXONE 2 G in DEXTROSE 5% WATER 50 ML IV SCH (21:47)
[2020-06-25] VITALS: BP 116/60
[2020-06-25] MEDS: SODIUM CHLORIDE 0.9% 1,000 ML IV SCH ×3 (02:26→21:26)
[2020-06-25 04:00] VITALS: BP 112/71
[2020-06-25] MEDS: GABAPENTIN 100MG CAPSULE PO SCH ×3 (06:14→21:24)
[2020-06-25] MEDS: BLOOD SUGAR DIAGNOSTIC STRIP TEST SCH ×4 (06:14→21:24)
[2020-06-25] MEDS: INSULIN LISPRO 100 UNITS/ML SUBCUT SCH ×4 (07:35→21:27)
[2020-06-25 08:00] VITALS: BP 107/46
[2020-06-25] MEDS: THIAMINE HCL 100MG TABLET PO SCH (09:13)
[2020-06-25] MEDS: FOLIC ACID 1MG TABLET PO SCH (09:13)
[2020-06-25] MEDS: IRON SUCROSE COMPLEX 100 MG/5 ML ML IV SCH (09:13)
[2020-06-25] MEDS: ASCORBIC ACID 500 MG TABLET PO SCH (09:14)
[2020-06-25] MEDS: LIDOCAINE 5% PATCH TOP SCH (09:15)
[2020-06-25] MEDS: HEPARIN 5000 UNITS/ML VIAL SUBCUT SCH ×2 (09:16→21:24)
[2020-06-25] MEDS: TRAMADOL 50MG TABLET PO PRN (09:25)
[2020-06-25 12:10] VITALS: BP 110/57
[2020-06-25 16:05] VITALS: BP 116/51
[2020-06-25 17:16] LABS: BASOPHILS % 1.1 % (0.0-2.0); EOSINOPHILS % 2.5 % (0.0-5.0); HEMATOCRIT. 23.6 % (36.0-48.0); HEMOGLOBIN. 7.8 g/dL (12.0-16.0); LYMPHOCYTES % 35.6 % (20.0-50.0); MEAN CORPUSCULAR HEMOGLOBIN 29.8 pg (28.0-32.0); MEAN CORPUSCULAR VOLUME 89.5 fL (81.0-99.0); MEAN PLATELET VOLUME 8.4 fl (7.4-10.4); MONOCYTES % 7.3 % (2.0-8.0); NEUTROPHILS % 53.5 % (40.0-76.0); PLATELET 318 x1000/uL (130-400); RED BLOOD CELL COUNT 2.63 mill/uL (4.2-5.4); RED CELL DISTRIBUTION WIDTH 13.8 % (11.6-14.6)
[2020-06-25 17:17] LABS: CHLORIDE 107 mEq/L (98-107)
[2020-06-25 20:00] VITALS: BP 118/63
[2020-06-25] MEDS: CEFTRIAXONE 2 G in DEXTROSE 5% WATER 50 ML IV SCH (21:24)
[2020-06-26] VITALS: BP 117/68
[2020-06-26 06:03] LABS: BASOPHILS % 0.8 % (0.0-2.0); EOSINOPHILS % 2.6 % (0.0-5.0); HEMATOCRIT. 24.1 % (36.0-48.0); HEMOGLOBIN. 7.9 g/dL (12.0-16.0); LYMPHOCYTES % 32.3 % (20.0-50.0); MEAN CORPUSCULAR HEMOGLOBIN 29.6 pg (28.0-32.0); MEAN CORPUSCULAR VOLUME 90.5 fL (81.0-99.0); MEAN PLATELET VOLUME 8.5 fl (7.4-10.4); MONOCYTES % 7.7 % (2.0-8.0); NEUTROPHILS % 56.6 % (40.0-76.0); PLATELET 312 x1000/uL (130-400); RED BLOOD CELL COUNT 2.66 mill/uL (4.2-5.4); RED CELL DISTRIBUTION WIDTH 14.1 % (11.6-14.6)
[2020-06-26 06:15] LABS: CHLORIDE 109 mEq/L (98-107)
[2020-06-26] MEDS: BLOOD SUGAR DIAGNOSTIC STRIP TEST SCH ×4 (06:48→21:04)
[2020-06-26] MEDS: GABAPENTIN 100MG CAPSULE PO SCH ×4 (06:48→21:01)
[2020-06-26] MEDS: INSULIN LISPRO 100 UNITS/ML SUBCUT SCH ×4 (06:54→21:00)
[2020-06-26 08:00] VITALS: BP 108/46
[2020-06-26] MEDS ORDERED: MAGNESIUM 1 G PREMIX 100 ML IV NR (10:00)
[2020-06-26] MEDS: SODIUM CHLORIDE 0.9% 1,000 ML IV SCH (10:21)
[2020-06-26] MEDS: LIDOCAINE 5% PATCH TOP SCH (10:23)
[2020-06-26] MEDS: HEPARIN 5000 UNITS/ML VIAL SUBCUT SCH ×2 (10:23→21:00)
[2020-06-26] MEDS: FOLIC ACID 1MG TABLET PO SCH (10:24)
[2020-06-26] MEDS: ASCORBIC ACID 500 MG TABLET PO SCH (10:24)
[2020-06-26] MEDS: THIAMINE HCL 100MG TABLET PO SCH (10:24)
[2020-06-26] MEDS: IRON SUCROSE COMPLEX 100 MG/5 ML ML IV SCH (11:08)
[2020-06-26 16:00] VITALS: BP 127/62
[2020-06-26] MEDS: TRAMADOL 50MG TABLET PO PRN (21:01)
[2020-06-26] MEDS: CEFTRIAXONE 2 G in DEXTROSE 5% WATER 50 ML IV SCH (21:01)
[2020-06-26 22:40] VITALS: BP 118/75
[2020-06-27] VITALS (8 sets, daily range): BP systolic 109–125; BP diastolic 50–61
[2020-06-27] MEDS: INSULIN LISPRO 100 UNITS/ML SUBCUT SCH ×3 (06:12→20:47)
[2020-06-27] MEDS: BLOOD SUGAR DIAGNOSTIC STRIP TEST SCH ×4 (06:12→20:47)
[2020-06-27] MEDS: GABAPENTIN 100MG CAPSULE PO SCH ×3 (06:13→22:01)
[2020-06-27 08:18] LABS: BASOPHILS % 0.7 % (0.0-2.0); EOSINOPHILS % 1.9 % (0.0-5.0); HEMATOCRIT. 25.4 % (36.0-48.0); HEMOGLOBIN. 8.1 g/dL (12.0-16.0); LYMPHOCYTES % 31.2 % (20.0-50.0); MEAN CORPUSCULAR VOLUME 90.9 fL (81.0-99.0); MEAN PLATELET VOLUME 8.7 fl (7.4-10.4); MONOCYTES % 6.6 % (2.0-8.0); NEUTROPHILS % 59.6 % (40.0-76.0); PLATELET 282 x1000/uL (130-400); RED BLOOD CELL COUNT 2.79 mill/uL (4.2-5.4); RED CELL DISTRIBUTION WIDTH 14.2 % (11.6-14.6)
[2020-06-27] MEDS: FOLIC ACID 1MG TABLET PO SCH (08:32)
[2020-06-27] MEDS: LIDOCAINE 5% PATCH TOP SCH (08:32)
[2020-06-27] MEDS: THIAMINE HCL 100MG TABLET PO SCH (08:32)
[2020-06-27] MEDS: ASCORBIC ACID 500 MG TABLET PO SCH (08:32)
[2020-06-27] MEDS: HEPARIN 5000 UNITS/ML VIAL SUBCUT SCH ×2 (08:35→22:08)
[2020-06-27] MEDS ORDERED: MAGNESIUM 1 G PREMIX 100 ML IV SCH (12:00)
[2020-06-27] MEDS ORDERED: MAGNESIUM 2 G PREMIX 50 ML IV SCH (13:00)
[2020-06-27] MEDS ORDERED: BACITRACIN 15GM TUBE TOP ONE (14:45)
[2020-06-27] MEDS ORDERED: BACITRACIN 50,000 UNITS/VIAL ONE ×2 (14:46→15:35)
[2020-06-27] MEDS ORDERED: LIDOCAINE HCL 1% 20ML VIAL (Pyxis) INJ ONE (14:46)
[2020-06-27] MEDS ORDERED: BUPIVACAINE HCL/PF 0.5% (5MG/ML) 10ML ONE (16:02)
[2020-06-27] MEDS ORDERED: MIDAZOLAM HCL 2 MG/2 ML VIAL ONE ×2 (16:28→16:37)
[2020-06-27] MEDS ORDERED: FENTANYL CITRATE/PF 50MCG/ML 2ML VIAL ONE ×2 (16:28→16:37)
[2020-06-27] MEDS ORDERED: HYDROMORPHONE HCL/PF 2MG/ML CPJ IV PRN (16:45)
[2020-06-27] MEDS ORDERED: MEPERIDINE HCL/PF 25MG/ML CPJ IV PRN (16:45)
[2020-06-27] MEDS ORDERED: LABETALOL 5MG/ML SYR 20 MG/4 ML SYRINGE IV PRN (16:45)
[2020-06-27] MEDS ORDERED: ONDANSETRON HCL 4MG/2ML INJ IV PRN (16:45)
[2020-06-27] MEDS ORDERED: PROPOFOL 200MG/20ML VIAL IV ONE (17:15)
[2020-06-27] MEDS ORDERED: STERILE WATER FOR INJECTION 10ML VIAL ONE (17:32)
[2020-06-27] MEDS ORDERED: PHENYLEPHRINE HCL 10 MG/ML 1ML (IV VIAL) IV ONE (17:32)
[2020-06-27] MEDS: CEFTRIAXONE 2 G in DEXTROSE 5% WATER 50 ML IV SCH (22:01)
[2020-06-28] VITALS: BP 112/50
[2020-06-28 04:00] VITALS: BP 115/73
[2020-06-28] MEDS: GABAPENTIN 100MG CAPSULE PO SCH ×3 (06:08→21:13)
[2020-06-28] MEDS: INSULIN LISPRO 100 UNITS/ML SUBCUT SCH ×4 (06:08→21:00)
[2020-06-28] MEDS: BLOOD SUGAR DIAGNOSTIC STRIP TEST SCH ×4 (06:08→21:13)
[2020-06-28 08:00] VITALS: BP 100/52
[2020-06-28] MEDS: TRAMADOL 50MG TABLET PO PRN ×2 (09:22→16:28)
[2020-06-28] MEDS: FOLIC ACID 1MG TABLET PO SCH (09:22)
[2020-06-28] MEDS: HEPARIN 5000 UNITS/ML VIAL SUBCUT SCH ×2 (09:22→20:51)
[2020-06-28] MEDS: ASCORBIC ACID 500 MG TABLET PO SCH (09:22)
[2020-06-28] MEDS: THIAMINE HCL 100MG TABLET PO SCH (09:22)
[2020-06-28] MEDS: LIDOCAINE 5% PATCH TOP SCH (09:24)
[2020-06-28 10:31] LABS: BASOPHILS % 0.6 % (0.0-2.0); EOSINOPHILS % 1.4 % (0.0-5.0); HEMATOCRIT. 25.4 % (36.0-48.0); HEMOGLOBIN. 8.3 g/dL (12.0-16.0); LYMPHOCYTES % 22.7 % (20.0-50.0); MEAN CORPUSCULAR HEMOGLOBIN 29.5 pg (28.0-32.0); MEAN CORPUSCULAR VOLUME 90.2 fL (81.0-99.0); MEAN PLATELET VOLUME 8.4 fl (7.4-10.4); MONOCYTES % 5.9 % (2.0-8.0); NEUTROPHILS % 69.4 % (40.0-76.0); PLATELET 264 x1000/uL (130-400); RED BLOOD CELL COUNT 2.82 mill/uL (4.2-5.4); RED CELL DISTRIBUTION WIDTH 14.6 % (11.6-14.6)
[2020-06-28 10:40] LABS: CHLORIDE 105 mEq/L (98-107)
[2020-06-28 10:46] LABS: PHOSPHORUS 3.4 mg/dL (2.5-4.9)
[2020-06-28] MEDS ORDERED: LEVOFLOXACIN 500MG TABLET PO SCH (11:00)
[2020-06-28] MEDS: MAGNESIUM OXIDE 400MG TABLET PO SCH (11:14)
[2020-06-28 12:00] VITALS: BP 107/54
[2020-06-28 16:00] VITALS: BP 139/79
[2020-06-28] MEDS: DOXYCYCLINE HYCLATE 100MG CAPSULE PO SCH (17:58)
[2020-06-28] MEDS: AMOXICILLIN/POTASSIUM CLAVULANATE 875/125MG TAB PO SCH (20:51)
[2020-06-28 21:11] VITALS: BP 103/42
[2020-06-29] VITALS: BP 98/48
[2020-06-29 04:00] VITALS: BP 109/47
[2020-06-29] MEDS: BLOOD SUGAR DIAGNOSTIC STRIP TEST SCH ×2 (06:11→12:10)
[2020-06-29] MEDS: GABAPENTIN 100MG CAPSULE PO SCH ×2 (06:11→13:56)
[2020-06-29] MEDS: INSULIN LISPRO 100 UNITS/ML SUBCUT SCH ×2 (07:40→13:16)
[2020-06-29] MEDS: ASCORBIC ACID 500 MG TABLET PO SCH (09:04)
[2020-06-29] MEDS: THIAMINE HCL 100MG TABLET PO SCH (09:04)
[2020-06-29] MEDS: DOXYCYCLINE HYCLATE 100MG CAPSULE PO SCH ×2 (09:04→16:58)
[2020-06-29] MEDS: AMOXICILLIN/POTASSIUM CLAVULANATE 875/125MG TAB PO SCH (09:04)
[2020-06-29] MEDS: MAGNESIUM OXIDE 400MG TABLET PO SCH (09:04)
[2020-06-29] MEDS: HEPARIN 5000 UNITS/ML VIAL SUBCUT SCH (09:04)
[2020-06-29] MEDS: LIDOCAINE 5% PATCH TOP SCH (09:04)
[2020-06-29] MEDS: FOLIC ACID 1MG TABLET PO SCH (09:04)
[2020-06-29] MEDS: TRAMADOL 50MG TABLET PO PRN ×2 (10:04→17:04)
[2020-06-29 11:53] VITALS: BP 100/52
[2020-06-29 12:00] VITALS: BP 103/36
[2020-06-29 16:00] VITALS: BP 96/52
[2020-07-01 17:06] LABS: 25-HYDROXY VITAMIN D3 5.9 ng/mL (.)
== END 2020-06-29 18:00 | DRG 853 ==
LOC: ER 03:32 → ENRESERV 15:22 → 8WST 17:33
PROVIDERS: ADMIT Internal Medicine; ATTEND Internal Medicine
PROC: 0Y6R0Z0 Detachment at Right 2nd Toe, Complete, Open Approach (ICD-10-PCS; principal; 2020-06-27)
DX: A41.9 Sepsis, unspecified organism (principal); E43 Unspecified severe protein-calorie malnutrition; N17.9 Acute kidney failure, unspecified; N39.0 Urinary tract infection, site not specified; M86.671 Other chronic osteomyelitis, right ankle and foot; D63.8 Anemia in other chronic diseases classified elsewhere; E11.22 Type 2 diabetes mellitus with diabetic chronic kidney disease; E11.51 Type 2 diabetes mellitus with diabetic peripheral angiopathy without gangrene; E11.621 Type 2 diabetes mellitus with foot ulcer; E11.65 Type 2 diabetes mellitus with hyperglycemia; E86.0 Dehydration; F17.210 Nicotine dependence, cigarettes, uncomplicated; G89.4 Chronic pain syndrome; I12.9 Hypertensive chronic kidney disease with stage 1 through stage 4 chronic kidney disease, or unspecified chronic kidney disease; L97.519 Non-pressure chronic ulcer of other part of right foot with unspecified severity; M19.90 Unspecified osteoarthritis, unspecified site; N18.9 Chronic kidney disease, unspecified; R62.7 Adult failure to thrive; D50.9 Iron deficiency anemia, unspecified; R00.1 Bradycardia, unspecified; E83.42 Hypomagnesemia; E11.69 Type 2 diabetes mellitus with other specified complication; G54.6 Phantom limb syndrome with pain; R26.9 Unspecified abnormalities of gait and mobility; E11.42 Type 2 diabetes mellitus with diabetic polyneuropathy; F16.10 Hallucinogen abuse, uncomplicated; F14.10 Cocaine abuse, uncomplicated; M24.561 Contracture, right knee; Z20.822 Contact with and (suspected) exposure to COVID-19; F32.9 Major depressive disorder, single episode, unspecified; L60.3 Nail dystrophy; F10.10 Alcohol abuse, uncomplicated; Y90.0 Blood alcohol level of less than 20 mg/100 ml; Y92.89 Other specified places as the place of occurrence of the external cause; Z89.512 Acquired absence of left leg below knee; Z82.3 Family history of stroke; Z82.49 Family history of ischemic heart disease and other diseases of the circulatory system; Z79.899 Other long term (current) drug therapy; Z79.4 Long term (current) use of insulin; Z71.6 Tobacco abuse counseling; Z68.27 Body mass index [BMI] 27.0-27.9, adult
CPT/HCPCS: 36415; 71045; 73630; 76770; 80048; 80053; 80305; 80320; 81003; 82270; 82306; 82550; 82607; 82728; 82746; 82962; 83036; 83540; 83550; 83605; 83735; 83880; 84100; 84484; 85025; 85044; 86038; 86160; 87070; 87075; 87426; 88304; 88311; 92610; 93005; 93306; 93923; 97110; 97162; 97164; 97166; 97530; 99285; A4216; C1893; J0696; J1644; J1815; J2250; J2370; J2405; J2704; J3010; J3475; J3490; J7060; G0480

== ENCOUNTER 2023-12-03 16:25 | Inpatient (IN) | payer MEDICARE, MEDICAID ==
[~2023-12-03] VITALS: Ht 154.9 cm; Wt 99.8 kg
[~2023-12-03 16:25] MED LIST: AMLO5TAB4; GABA-532 MT; HYDR-4001 MT; METF-873 MT; MULT1TAB64 PO
[2023-12-03] MEDS ORDERED: ONDANSETRON HCL 4MG/2ML INJ IV ONE (17:00)
[2023-12-03] MEDS: SODIUM CHLORIDE 0.9% 1,000 ML IV ONE (17:00)
[2023-12-03 17:32] LABS: BASOPHILS % 0.5 % (0.0-2.0); EOSINOPHILS % 1.8 % (0.0-5.0); HEMATOCRIT. 36.8 % (36.0-48.0); HEMOGLOBIN. 12.1 g/dL (12.0-16.0); LYMPHOCYTES % 23.8 % (20.0-50.0); MEAN CORPUSCULAR HEMOGLOBIN 30.9 pg (28.0-32.0); MEAN CORPUSCULAR HGB CONC 32.9 g/dL (31.0-37.0); MEAN CORPUSCULAR VOLUME 94.1 fL (81.0-99.0); MEAN PLATELET VOLUME 8.8 fl (7.4-10.4); MONOCYTES % 5.7 % (2.0-8.0); NEUTROPHILS % 68.2 % (40.0-76.0); PLATELET 276 x1000/uL (130-400); RED BLOOD CELL COUNT 3.91 mill/uL (4.2-5.4); RED CELL DISTRIBUTION WIDTH 14.1 % (11.6-14.6); WHITE BLOOD COUNT 9.6 x1000/uL (4.5-11.0)
[2023-12-03 17:36] LABS: CHLORIDE 108 mEq/L (98-107); POTASSIUM 4.3 mEq/L (3.5-5.1); SODIUM 139 mEq/L (136-145)
[2023-12-03 17:37] LABS: CARBON DIOXIDE 19 mEq/L (21-32)
[2023-12-03 17:38] LABS: CALCIUM 8.6 mg/dL (8.7-10.4)
[2023-12-03 17:42] LABS: CREATININE 1.6 mg/dL (0.6-1.0); GLUCOSE 174 mg/dL (70-105)
[2023-12-03 17:43] LABS: UREA NITROGEN BLOOD 16 mg/dL (9-23)
[2023-12-03 17:44] LABS: ALANINE AMINOTRANSFERASE < 7 IU/L (10-49); ALBUMIN 3.9 g/dL (3.2-4.8); ASPARTATE AMINOTRANSFERASE 15 IU/L (<34); BETA HYDROXYBUTYRATE 0.1 mMol/L (0.0-0.3)
[2023-12-03 17:45] LABS: BILIRUBIN TOTAL 0.3 mg/dL (0.1-1.0); PHOSPHORUS 4.6 mg/dL (2.5-4.9); PROTEIN TOTAL 7.1 g/dL (6.0-8.3)
[2023-12-03] MEDS: ONDANSETRON HCL 4MG/2ML INJ IV NR (18:50)
[2023-12-03 22:00] VITALS: BP 152/78; PULSE 80; RESP 18; TEMP 97.9
[2023-12-04] MEDS ORDERED: ONDANSETRON HCL 4MG/2ML INJ IV PRN ×2 (00:15→20:15)
[2023-12-04] MEDS ORDERED: ZOLPIDEM TARTRATE 5MG TABLET PO PRN (00:15)
[2023-12-04] MEDS: SODIUM CHLORIDE 0.9% 1,000 ML IV SCH (00:15)
[2023-12-04] MEDS ORDERED: DOCUSATE SODIUM 100MG CAPSULE PO PRN (00:15)
[2023-12-04] MEDS ORDERED: CLONIDINE 0.1MG TABLET PO PRN ×2 (00:15→20:15)
[2023-12-04] MEDS ORDERED: ACETAMINOPHEN 325MG TABLET PO PRN (00:15)
[2023-12-04] MEDS ORDERED: IPRATROPIUM/ALBUTEROL 0.5-3(2.5)MG/3ML NEB NEB PRN (00:15)
[2023-12-04 06:06] VITALS: BP 138/76; PULSE 88; RESP 20; TEMP 98.1
[2023-12-04 08:00] VITALS: BP 151/88; PULSE 81; RESP 18; TEMP 97.3
[2023-12-04 08:45] VITALS: BP 151/88; PULSE 81; RESP 18; TEMP 97.3
[2023-12-04] MEDS: ENOXAPARIN 30MG/0.3ML SYR SUBCUT SCH (09:35)
[2023-12-04] MEDS ORDERED: DEXTROSE 50% WATER 50ML SYRINGE IV PRN (11:45)
[2023-12-04 12:00] VITALS: BP 151/75; PULSE 83; RESP 18; TEMP 97.6
[2023-12-04] MEDS: INSULIN LISPRO 100 UNITS/ML SUBCUT SCH (12:01)
[2023-12-04 16:00] VITALS: BP 121/73; PULSE 89; RESP 18; TEMP 97.9
[2023-12-04] MEDS: BLOOD SUGAR DIAGNOSTIC STRIP TEST SCH (16:55)
[2023-12-04 17:51] LABS: BASOPHILS % 0.5 % (0.0-2.0); EOSINOPHILS % 2.3 % (0.0-5.0); HEMATOCRIT. 33.7 % (36.0-48.0); LYMPHOCYTES % 23.2 % (20.0-50.0); MEAN CORPUSCULAR HEMOGLOBIN 30.6 pg (28.0-32.0); MEAN CORPUSCULAR HGB CONC 32.6 g/dL (31.0-37.0); MEAN CORPUSCULAR VOLUME 93.9 fL (81.0-99.0); MEAN PLATELET VOLUME 8.8 fl (7.4-10.4); MONOCYTES % 4.9 % (2.0-8.0); NEUTROPHILS % 69.1 % (40.0-76.0); PLATELET 228 x1000/uL (130-400); RED BLOOD CELL COUNT 3.59 mill/uL (4.2-5.4); RED CELL DISTRIBUTION WIDTH 13.8 % (11.6-14.6); WHITE BLOOD COUNT 6.9 x1000/uL (4.5-11.0)
[2023-12-04 17:53] LABS: POTASSIUM 4.2 mEq/L (3.5-5.1)
[2023-12-04 17:59] LABS: CREATININE 1.4 mg/dL (0.6-1.0)
[2023-12-04 20:00] VITALS: BP 131/67; PULSE 95; RESP 18; TEMP 97.9
[2023-12-04] MEDS ORDERED: ENOXAPARIN 40MG/0.4ML SYR SUBCUT SCH (20:15)
[2023-12-04] MEDS: PANTOPRAZOLE SODIUM 40 MG/VIAL IV SCH (21:00)
[2023-12-04] MEDS: GABAPENTIN 300MG CAPSULE PO SCH (21:24)
[2023-12-05] VITALS: BP 140/68; PULSE 88; RESP 18; TEMP 97.5
[2023-12-05 04:00] VITALS: BP 149/73; PULSE 79; RESP 16; TEMP 97.5
[2023-12-05] MEDS: ACETAMINOPHEN 325MG TABLET PO PRN (05:49)
[2023-12-05 06:30] LABS: POTASSIUM 4.2 mEq/L (3.5-5.1)
[2023-12-05 06:31] LABS: CALCIUM 8.3 mg/dL (8.7-10.4)
[2023-12-05 06:36] LABS: CREATININE 1.3 mg/dL (0.6-1.0)
[2023-12-05 06:38] LABS: CREATINE KINASE MB FRACTION 1.6 ng/mL (0.5-3.6); TROPONIN I HIGH SENSITIVITY 17 ng/L (3.0-34)
[2023-12-05 06:40] LABS: BASOPHILS % 0.7 % (0.0-2.0); CREATINE KINASE 92 IU/L (34-145); EOSINOPHILS % 2.6 % (0.0-5.0); HEMATOCRIT. 35.3 % (36.0-48.0); HEMOGLOBIN. 11.1 g/dL (12.0-16.0); LYMPHOCYTES % 37.2 % (20.0-50.0); MEAN CORPUSCULAR HEMOGLOBIN 29.8 pg (28.0-32.0); MEAN CORPUSCULAR HGB CONC 31.5 g/dL (31.0-37.0); MEAN CORPUSCULAR VOLUME 94.6 fL (81.0-99.0); MEAN PLATELET VOLUME 9.5 fl (7.4-10.4); MONOCYTES % 4.2 % (2.0-8.0); NEUTROPHILS % 55.3 % (40.0-76.0); PLATELET 221 x1000/uL (130-400); RED BLOOD CELL COUNT 3.73 mill/uL (4.2-5.4); WHITE BLOOD COUNT 7.1 x1000/uL (4.5-11.0)
[2023-12-05 08:00] VITALS: BP 130/67; PULSE 75; RESP 18; TEMP 97.4
[2023-12-05] MEDS: AMLODIPINE 5MG TABLET PO SCH (10:00)
[2023-12-05 12:00] VITALS: BP 134/72; PULSE 76; RESP 18; TEMP 97.8
[2023-12-05 16:00] VITALS: BP 138/66; PULSE 76; RESP 18; TEMP 97.7
[2023-12-05] MEDS ORDERED: NALOXONE HCL 0.4MG/ML VIAL IV PRN (17:45)
[2023-12-05] MEDS: MORPHINE SULFATE 2 MG/ML INJ (NOT FOR IM USE) IV PRN (18:06)
[2023-12-05 20:00] VITALS: BP 148/73; PULSE 75; RESP 18; TEMP 98.2
[2023-12-06] VITALS: BP 154/79; PULSE 84; RESP 18; TEMP 97.9
[2023-12-06 01:29] LABS: CLARITY URINE CLOUDY (CLEAR); COLOR URINE YELLOW (YELLOW); GLUCOSE URINE NEGATIVE (NEGATIVE); KETONES URINE NEGATIVE (NEGATIVE); LEUKOCYTE ESTERASE URINE NEGATIVE (NEGATIVE); NITRITE URINE NEGATIVE (NEGATIVE); OCCULT BLOOD URINE 3+ (NEGATIVE); PROTEIN URINE 2+ (NEGATIVE); SPECIFIC GRAVITY URINE 1.014 (1.005-1.030); UROBILINOGEN URINE 0.2 E.U./dL (0.2-1.0)
[2023-12-06 01:48] LABS: *AMPHETAMINES SCREEN URINE NEGATIVE (NEGATIVE); *BARBITURATES SCREEN URINE NEGATIVE (NEGATIVE); *BENZODIAZEPINES SCREEN URINE NEGATIVE (NEGATIVE); *COCAINE SCREEN URINE PRESUMPTIVE POSITIVE (NEGATIVE); CANNABINOID URINE SCREEN NEGATIVE (NEGATIVE); METHADONE URINE SCREEN NEGATIVE (NEGATIVE); OPIATES URINE SCREEN PRESUMPTIVE POSITIVE (NEGATIVE); PHENCYCLIDINE URINE SCREEN PRESUMTIVE POSITIVE (NEGATIVE)
[2023-12-06 02:12] LABS: BACTERIA URINE 2+; RBC URINE 0-2 /hpf (0-2); SQUAMOUS EPITHELIAL CELL URINE 2+ /lpf (RARE/1+)
[2023-12-06 02:22] LABS: ECSTASY MDMA SCREEN URINE NEGATIVE (NEGATIVE)
[2023-12-06 04:00] VITALS: BP 159/78; PULSE 75; RESP 22; TEMP 97.7
[2023-12-06 08:00] VITALS: BP 130/53; PULSE 72; RESP 15; TEMP 98.5
[2023-12-06] MEDS: FAMOTIDINE 20MG/2ML VIAL IV SCH (09:00)
[2023-12-06 12:00] VITALS: BP 146/65; PULSE 78; RESP 15; TEMP 97.5
[2023-12-06 16:00] VITALS: BP 151/64; PULSE 75; RESP 19; TEMP 96.8
[2023-12-06 17:08] VITALS: BP 151/67; PULSE 19; TEMP 96.8; O2SAT 97
== END 2023-12-06 19:47 | DRG 684 ==
LOC: ER 16:25 → EDBEDREQTM 19:09 → EDBEDREQ 19:09 → 5WST 21:39 → 7EST 12-04 08:46
PROVIDERS: ADMIT Internal Medicine; ATTEND Internal Medicine
DX: N17.9 Acute kidney failure, unspecified (principal); I10 Essential (primary) hypertension; E11.40 Type 2 diabetes mellitus with diabetic neuropathy, unspecified; G89.29 Other chronic pain; R32 Unspecified urinary incontinence; E86.0 Dehydration; M54.50 Low back pain, unspecified; Z89.512 Acquired absence of left leg below knee; Z99.3 Dependence on wheelchair; Z79.84 Long term (current) use of oral hypoglycemic drugs; Z89.612 Acquired absence of left leg above knee
CPT/HCPCS: 36415; 80048; 80053; 80305; 81003; 82010; 82550; 82553; 82962; 83036; 83735; 84100; 84484; 85025; 93970; 97162; 99285; J1650; J1815; J2270; J2405; J2470; J3490; J7030